=== PATIENT | female | born 1975 | race Caucasian/White ===

== ENCOUNTER 2020-05-16 14:13 | Emergency (ER) | payer MEDICAID, SELFPAY ==
[2020-05-16 14:25] VITALS: BP 120/73; PULSE 89; RESP 18; TEMP 36.6; O2SAT 97; BMI 25.0
--- NOTE | 2020-05-16 14:36 | HMH.EDUTC ---
[facility] [place] Disposition Clinical Impression: Bronchitis Sinusitis Qualifiers: Sinusitis location: unspecified location Chronicity: unspecified Qualified Code(s): J32.9 - Chronic sinusitis, unspecified Disposition: Home, Self-Care Condition on Discharge: Good Instructions: Sinusitis, Sinus Headache, Acute Bronchitis, Azithromycin Additional Instructions: ? Start antibiotic today. Be sure to complete entire prescription even if feeling better ? Monitor temp. Tylenol every 4 hours as needed and / or ibuprofen every 6 hours as needed ( As long as your primary care physician has told you that it ok to take both. For fever/aches/pains ER if no less than 101 despite Tylenol or Motrin ? Humidifier/vaporizer or hot steamy shower ? Inhaler every 4-6 hours as needed like we discussed. If unsure how to use it, ask pharmacist to demonstrate how. Should help open airways and improve cough, wheezing, and shortness of breath ? Mucinex during the day for your cough and cough suppressant only at night. Be sure to drink lots of water. Insurance may not cover a prescriptions for mucinex. Might be cheaper to get 400mg tablets and take 2 tablet in the morning, mid-day and evening with lots of water. Start steroid today. Helps with inflammation therefore, cough and wheezing. Follow directions on the package. Reviewed side effects. Patient reports taking them before. Follow up IMMEDIATELY for new or worsening of symptoms OR no noticeable improvement over the next 48-72 hours. 911 immediately for any life threatening symptoms such as chest pain or difficulty breathing You was tested for today for COVID19 your test result should be back in the next 24-48 hours, you may call to the [facility] tomorrow to see if your test results are back however could take up to 48 hours before results are back [phone] [facility] hours are 9am-9pm You was given a handout with instructions for Self Quarantine and Self isolation for while you wait on test results and what to do if they are positive If you are positive the Health Dept will be contacting you also Prescriptions: predniSONE [Deltasone 10mg tablet] 10 mg PO BID 5 Days #10 tab Transmission Status: Received by [facility] #[id number] Azithromycin [Z-Dennis 250mg Tab] 250 mg PO DIRECTED #6 tab Transmission Status: Received by [facility] #[id number] Referrals: Rosalina Booker PA [Primary Care Provider] - As needed Time of Disposition: 15:02 Medical Decision Making - Óscar Inquiry Pt receiving controlled substance: No Óscar was queried for this patient: No Vital Signs: 05/16/20 14:25 05/16/20 14:42 Temperature 97.8 F 97.8 F Temperature Source Oral Oral Pulse Rate 89 Pulse Rate [Right] 89 Respiratory Rate 18 18 Blood Pressure 120/73 Blood Pressure [Left Arm] 120/73 Blood Pressure Mean [Left Arm] 88 Blood Pressure Source [Left Arm] Automatic Cuff Blood Pressure Position [Left Arm] Sitting 02 Sat by Pulse Oximetry 97 Oxygen Delivery Method Room Air Orders (Tests/Meds): ED MEDICATIONS Discontinued Medications Generic Name Dose Route Start Last Admin Trade Name Freq PRN Reason Stop Dose Admin Albuterol/Ipratropium 3 ml 05/16/20 14:36 05/16/20 14:50 Albuterol/Ipratropium 3 Ml Neb IH 05/16/20 14:37 3 ml ONCE ONE Administration ORDERS Category Date Time Status Covid-19 Nasal PCR Sendout Sang Stat Lab 05/16/20 14:36 Ordered Medical Decision Narrative: Wheezing diminished after neb and patient states that she feels much better [facility] [place] HPI - General Stated complaint: Cough Time Seen by Provider: 05/16/20 14:36 Mode of Arrival: Ambulatory Source of Information: Patient Limitations: No Limitations Description of Symptoms (Recalled from Triage Doc. by RN): Chest congestion, dry cough HEENT Symptoms (Recalled from RN notes): No Resp Symptoms (Recalled from RN notes): Yes Skin Symptoms (Recalled from RN notes): No MS Symptoms (Recalled from RN notes): No Functio
[2020-05-16 14:42] VITALS: BP 120/73; PULSE 89; RESP 18; TEMP 36.6; O2SAT 97
[2020-05-18 13:23] LABS: Covid-19 Nasal PCR Sendout Lex NOT DETECTED
== END 2020-05-16 15:24 | disposition home or self-care (01) ==
LOC: UTC 14:16
PROVIDERS: Emergency Provider Nurse Practitioner; PCP Nurse Practitioner Family
DX: Z20.828 Contact with and (suspected) exposure to other viral communicable diseases (principal); J20.9 Acute bronchitis, unspecified; J32.9 Chronic sinusitis, unspecified; F17.210 Nicotine dependence, cigarettes, uncomplicated; Z88.2 Allergy status to sulfonamides; Z88.5 Allergy status to narcotic agent
CPT/HCPCS: 99201; U0004

== ENCOUNTER 2020-10-23 14:02 | Emergency (ER) | payer MEDICAID, SELFPAY ==
[2020-10-23 14:05] VITALS: BP 144/85; PULSE 88; RESP 17; TEMP 37; O2SAT 95; BMI 25.0
--- NOTE | 2020-10-23 14:35 | HMH.EDUTC ---
[facility] [place] Disposition Clinical Impression: COPD exacerbation Disposition: Home, Self-Care Condition on Discharge: Good Instructions: DI for Chronic Obstructive Pulmonary Disease, Preventing the Spread of Coronavirus Discharge Instructions Additional Instructions: Drink plenty of fluids. Take tylenol or ibuprofen for pain or fever. Take the medications as directed. Follow up with your regular doctor. GO TO THE ER FOR ANY WORSENING SYMPTOMS Prescriptions: Albuterol Sulfate [Albuterol Sulfate Hfa] 2 puffs IH Q6HP PRN 30 Days #1 [email or web address] PRN Reason: Shortness Of Breath Transmission Status: Pending to [email or web address] #[id number] Promethazine/Dextromethorphan [Promethazine-Dm Syrup] 5 ml PO Q6HP PRN #240 syrup PRN Reason: Cough Transmission Status: Pending to [email or web address] #[id number] predniSONE [Deltasone 10mg tablet] 10 mg PO BID 3 Days #6 tab Transmission Status: Pending to [email or web address] #[id number] Azithromycin [Z-Dennis 250mg Tab*] 250 mg PO UD DOSE PK #6 tab Transmission Status: Pending to [email or web address] #[id number] Referrals: Rosalina Booker PA [Primary Care Provider] - Time of Disposition: 14:58 Medical Decision Making - Medical Records Medical records reviewed: No: I reviewed the patient's medical records. - Óscar Inquiry Pt receiving controlled substance: No Vital Signs: 10/23/20 14:05 Temperature 98.6 F Temperature Source Oral Pulse Rate [Left Brachial] 88 Respiratory Rate 17 Blood Pressure [Left Arm] 144/85 H Blood Pressure Mean [Left Arm] 104 Blood Pressure Source [Left Arm] Automatic Cuff Blood Pressure Position [Left Arm] Sitting 02 Sat by Pulse Oximetry 95 Oxygen Delivery Method Room Air - Lab Data Lab results reviewed: Yes: I reviewed the patient's lab results. Orders (Tests/Meds): ORDERS Category Date Time Status Covid-19 Nasal PCR ([facility]) Routine Lab 10/23/20 14:45 Ordered Monoscreen (Rapid) Stat Lab 10/23/20 14:45 Ordered [facility] [place] HPI - General Stated complaint: Cough,difficulty breathing,[place],chest congestion Time Seen by Provider: 10/23/20 14:35 - History of Present Illness Provider Complaint: She states that for the past 3 days she has had a cough and chest congestion. She has also felt achy and had some nausea. Her daughter was diagnosed with mono 1 week ago. This patient denies sore throat. She has not been vaccinated against covid-19. She has had a flu shot this season. She has a history of copd. - Related Data Previous Rx's Medication Instructions Recorded Cefdinir [Omnicef 300mg Capsule] 300 mg PO BID #20 cap 10/23/18 Azithromycin [Z-Dennis 250mg Tab] 250 mg PO DIRECTED #6 tab 05/16/20 predniSONE [Deltasone 10mg tablet] 10 mg PO BID 5 Days #10 tab 05/16/20 Albuterol Sulfate [Albuterol 2 puffs IH Q6HP PRN 30 Days #1 10/23/20 Sulfate Hfa] [email or web address] Azithromycin [Z-Dennis 250mg Tab*] 250 mg PO UD DOSE PK #6 tab 10/23/20 Promethazine/Dextromethorphan 5 ml PO Q6HP PRN #240 syrup 10/23/20 [Promethazine-Dm Syrup] predniSONE [Deltasone 10mg tablet] 10 mg PO BID 3 Days #6 tab 10/23/20 Allergies Allergy/AdvReac Type Severity Reaction Status Date / Time oxycodone [From PERCOCET] Allergy Intermediate I-ITCHING Verified 05/16/20 14:39 sulfamethoxazole Allergy Mild I-RASH Verified 05/16/20 14:39 [From Bactrim] trimethoprim [From Bactrim] Allergy Mild I-RASH Verified 05/16/20 14:39 [facility] History - Hepatitis A Screen Attestation statement:: This patient has been screened for Hepatitis A risk factors. I have reviewed the patient's past medical history: Yes Medical History: Denies:: Cancer, Diabetes Mellitus Type 1, Diabetes Mellitus Type 2, Internal Pacemaker, MRSA Other Surgeries: No: Pacemaker Amputation: No Fractures: No - Social History Smoking Status: Current every day smoker Tobacco Type: cigarettes # Packs/Day (cigarettes): 1 Alcohol Intake: never Occupational Status: employed ROS Obtained: Yes All systems revi
[2020-10-23 15:07] VITALS: BP 144/85; PULSE 88; RESP 17; TEMP 37; O2SAT 95
[2020-10-23 15:27] LABS: Monoscreen (Rapid) Negative (Negative)
--- NOTE | 2020-10-24 10:27 | PC.NURSE ---
Pt called and was given Covid test results.
== END 2020-10-23 15:11 | disposition home or self-care (01) ==
PROVIDERS: Emergency Provider Nurse Practitioner Family; PCP Nurse Practitioner Family
DX: J44.1 Chronic obstructive pulmonary disease with (acute) exacerbation (principal); Z79.899 Other long term (current) drug therapy; Z20.822 Contact with and (suspected) exposure to COVID-19
CPT/HCPCS: 86318; 99202; G0463; U0003

== ENCOUNTER 2020-10-25 13:01 | Observation (INO) | payer MEDICAID, SELFPAY ==
[2020-10-25] VITALS (9 sets, daily range): BP systolic 126–144; BP diastolic 72–95; PULSE 63–74; RESP 18–20; TEMP 36.7–37; O2SAT 92–96; BMI 25.8; BMI 24.2
--- NOTE | 2020-10-25 13:09 | ECG_ITS ---
APPROVED REPORT Exam: Resting ECG HR:61 bpm ECG Measurements Heart Rate 61 AXES IA 156 P 33 QRSd 94 QRS -10 QT 448 T 50 QTc 450 Conclusion Normal sinus rhythm Incomplete right bundle branch block Borderline ECG Electronically signed by : Anshu Lopez, 10/27/2020 11:38:30
--- NOTE | 2020-10-25 13:14 | HMH.EDGENADL ---
ED Disposition Clinical Impression: COPD exacerbation Acute bronchitis Qualifiers: Bronchitis organism: unspecified organism Qualified Code(s): J20.9 - Acute bronchitis, unspecified Disposition: Admitted As Inpatient Condition on Discharge: Fair - Critical Care Critical Care Time: No Attestation: On 10/25/20, the high probability of a clinically significant, sudden or life threatening deterioration of the following system(s) required my full and direct attention, intervention and personal management. The time I documented below is in addition to time spent performing reported procedures but includes the following listed in this critical care notation. Medical Decision Making - Medical Records Medical records reviewed: Yes: I reviewed the patient's medical records. MR Comment: Reviewed [facility] visit 10/23/2020. Diagnosed with COPD exacerbation. Prescribed Zithromax, prednisone, promethazine cough syrup, albuterol metered-dose inhaler. Covid 19 and mono tests negative. Had been exposed to daughter who tested positive for mono. - Óscar Inquiry Pt receiving controlled substance: No Vital Signs: 10/25/20 13:02 10/25/20 14:18 10/25/20 14:23 Temperature 98.6 F Temperature Source Oral Pulse Rate 63 68 Pulse Rate [Left Radial] 68 Respiratory Rate 20 Blood Pressure 126/77 Blood Pressure [Right Arm] 144/95 H Blood Pressure Mean 97 Blood Pressure Mean [Right Arm] 111 02 Sat by Pulse Oximetry 96 96 95 Oxygen Delivery Method Room Air 10/25/20 14:30 10/25/20 15:00 10/25/20 17:10 Temperature 98.4 F Temperature Source Oral Pulse Rate 67 72 72 Pulse Rate [Left Radial] Respiratory Rate 18 Blood Pressure 136/80 139/80 139/80 Blood Pressure [Right Arm] Blood Pressure Mean 87 99 Blood Pressure Mean [Right Arm] 02 Sat by Pulse Oximetry 93 L 92 L Oxygen Delivery Method Room Air - Lab Data Lab Results 10/25/20 13:25: WBC 12.0 H, RBC 3.96 L, Hgb 12.3, Hct 38.0, MCV 96.0, MCH 31.0, MCHC 32.3, RDW 12.5, Plt Count 254, MPV 8.8, Neut % (Auto) 79.7, Lymph % (Auto) 10.2, Cocke % (Auto) 6.4, Eos % (Auto) 3.3, Baso % (Auto) 0.5, Neut # (Auto) 9.6 H, Lymph # (Auto) 1.2, [place] # (Auto) 0.8, Eos # (Auto) 0.4, Baso # (Auto) 0.1 10/25/20 13:25: Sodium 137, Potassium 3.5, Chloride 105, Carbon Dioxide 26, Anion Gap 9.5, BUN 6 L, Creatinine 0.50 L, Estimated Creat Clear 166, Estimated GFR 135, Est GFR ( Amer) 163, Glucose 128 H, Calcium 9.1, Total Bilirubin 0.4, AST 29, ALT 19, Alkaline Phosphatase 74, Total Protein 6.9, Albumin 4.2, Globulin 2.7, Albumin/Globulin Ratio 1.6 10/25/20 13:36: Lactate 1.7 10/25/20 14:50: Chlamy pneumoniae PCR Not detected, Adenovirus (PCR) Not detected, B. pertussis DNA (PCR) Not detected, Coronavirus OC43 (PCR) Not detected, Coronavirus HKU1 (PCR) Not detected, Coronavirus 229E (PCR) Not detected, SARS-CoV-2 (PCR) Not detected, Coronavirus NL63 (PCR) Not detected, Human Metapneumovir PCR Not detected, Influenza A (H1) PCR Not detected, Influ A (H1N1/09) PCR Not detected, Influenza A (H3) PCR Not detected, Influenza Type A (PCR) Not detected, Influenza Type B (PCR) Not detected, M. pneumoniae (PCR) Not detected, Parainfluenza 1 (PCR) Not detected, Parainfluenza 2 (PCR) Not detected, Parainfluenza 3 (PCR) Not detected, Parainfluenza 4 (PCR) Not detected, RSV (PCR) Not detected, Entero/Rhino (PCR) Detected A Result diagrams: 10/25/20 13:25 10/25/20 13:25 Orders (Tests/Meds): ED MEDICATIONS Generic Name Dose Route Start Last Admin Trade Name Freq PRN Reason Stop Dose Admin Acetaminophen 650 mg 10/25/20 16:47 10/25/20 20:12 Acetaminophen 325mg Tab PO 11/24/20 16:46 650 mg Q4HP PRN Administration Fever or Mild Pain Albuterol/Ipratropium 3 ml 10/25/20 20:00 10/25/20 19:44 Ipratropium/Albuterol 3 Ml Neb IH 11/24/20 19:59 3 ml QIDRT ADRIANNA Administration Buspirone HCl 10 mg 10/26/20 09:00 Buspirone Hcl 10 Mg Tablet PO 11/25/20 08:59
--- NOTE | 2020-10-25 13:26 | XR_ITS ---
PROCEDURE: XR CHEST 2V CLINICAL HISTORY: cough, fever, soa COMPARISON: CR CXR CHEST(2 VIEWS-NOT PORTABLE) from 03/13/2015 FINDINGS: The cardiomediastinal silhouette and pulmonary vascularity are within normal limits. The lungs are clear without infiltrates, suspicious nodules, or pleural effusions. No acute bony abnormalities. IMPRESSION: No acute findings. Dictated by: Eleni Wilson 10/25/2020 14:13 Eleni Wilson in OV 10/25/2020 14:13
[2020-10-25 13:50] LABS: Basophils # 0.1 K/mm3 (0-0.2); Basophils % 0.5 % (0.1-2.0); Eosinophils # 0.4 K/mm3 (0.0-0.4); Eosinophils % 3.3 % (0.1-12.0); Hemoglobin 12.3 g/dL (12.2-16.2); Lymphocytes # 1.2 K/mm3 (0.7-4.5); Lymphocytes % 10.2 % (10-50); Mean Corpuscular HGB Conc 32.3 g/dL (31.8-35.4); Mean Platelet Volume 8.8 fl (7.4-10.4); Monocytes # 0.8 K/mm3 (0.1-1.0); Monocytes % 6.4 % (1.7-9.3); Neutrophils # 9.6 K/mm3 (1.8-7.8); Neutrophils % 79.7 % (37.0-80.0); Platelet Count 254 K/mm3 (142-424); Red Blood Count 3.96 M/mm3 (4.20-5.40); Red Cell Distribution Width 12.5 % (11.5-17.5)
[2020-10-25 13:55] LABS: Alanine Aminotransferase 19 U/L (12-78); Albumin Level 4.2 g/dl (3.5-5.0); Albumin/Globulin Ratio 1.6 (1.1-1.8); Alkaline Phosphatase 74 U/L (38-126); Aspartate Amino Transferase 29 U/L (14-36); Bilirubin,Total 0.4 mg/dl (0.2-1.3); Blood Urea Nitrogen 6 mg/dl (7-17); Calcium 9.1 mg/dl (8.4-10.2); Carbon Dioxide 26 mmol/L (22.0-30.0); Chloride 105 mmol/L (98-107); Creatinine Clearance Estimated 166 mL/min (50-200); Estimated Glomerular Filt Rate 135 ml/min (>60); GFR (African American) 163 ML/MIN (>60); Globulin 2.7 g/dL (1.3-3.2); Glucose 128 mg/dl (74-100); Sodium 137 mmol/L (136-145); Total Protein,Serum 6.9 g/dl (6.3-8.2)
[2020-10-25 13:58] LABS: Anion Gap 9.5 mEq/L (5-15); Potassium 3.5 mmoL/L (3.5-5.1)
[2020-10-25 13:59] LABS: Lactic Acid 1.7 mmol/L (0.7-2.1)
[2020-10-25 14:54] LABS: Adenovirus,PCR Not Detected (NotDetected); Bordetella Pertussis Not Detected (NotDetected); Chlamydophila Pneumoniae, PCR Not Detected (NotDetected); Coronavirus 19, PCR Not Detected (NotDetected); Coronavirus 229E Not Detected (NotDetected); Coronavirus NL63 Not Detected (NotDetected); Coronavirus OC43 Not Detected (NotDetected); Coronovirus HKU1,PCR Not Detected (NotDetected); Human Metapneumovirus Not Detected (NotDetected); Influenza A, PCR Not Detected (NotDetected); Influenza AH1, 2009 Not Detected (NotDetected); Influenza AH1, PCR Not Detected (NotDetected); Influenza AH3,PCR Not Detected (NotDetected); Influenza B, PCR Not Detected (NotDetected); Mycoplasma Pneumoniae, PCR Not Detected (NotDetected); Parainfluenza 1, PCR Not Detected (NotDetected); Parainfluenza 2, PCR Not Detected (NotDetected); Parainfluenza 3, PCR Not Detected (NotDetected); Parainfluenza 4, PCR Not Detected (NotDetected); Respiratory Syncytial Virus Not Detected (NotDetected)
--- NOTE | 2020-10-25 15:42 | P.CONPHA_ITS ---
[facility] Pharmacy VTE Monitoring - Patient Demographics Admission date: 10/25/20 Report Date: 10/25/20 Time: 15:42 Allergies/Adverse Reactions: Patient Allergies oxycodone [From PERCOCET] Allergy (Intermediate, Verified 05/16/20 14:39) I-ITCHING sulfamethoxazole [From Bactrim] Allergy (Mild, Verified 05/16/20 14:39) I-RASH trimethoprim [From Bactrim] Allergy (Mild, Verified 05/16/20 14:39) I-RASH Height: 1.68 m Weight: 72.575 kg Patient Problems: Current Active Problems COPD exacerbation (Acute) Acute bronchitis (Acute) - VTE Risk Labs: VTE Related Lab Results Hgb 12.3 g/dL (12.2-16.2) 10/25/20 13:25 Hct 38.0 % (37.0-47.0) 10/25/20 13:25 Plt Count 254 K/mm3 (142-424) 10/25/20 13:25 BUN 6 mg/dl (7-17) L 10/25/20 13:25 Creatinine 0.50 mg/dl (0.52-1.04) L 10/25/20 13:25 Estimated Creat Clear 166 mL/min (50-200) 10/25/20 13:25 Clinical Trial Participant: No - Prophylaxis VTE Prophylaxis Ordered?: Yes Types of VTE Prophylaxis: TEDS Knee High
--- NOTE | 2020-10-25 15:48 | HMH.PHAINT ---
HOME MEDICATION LIST VERIFIED USING LIST FROM OUTPATIENT PHARMACY
[2020-10-25 16:13] LABS: Rhinovirus/Enterovirus Detected (NotDetected)
--- NOTE | 2020-10-25 17:02 | PC.NURSE ---
Verified with ED that pt was to receive another 80 mg of solu medrol on aug as ordered, spoke with Shira.
--- NOTE | 2020-10-25 17:12 | PC.NURSE ---
Pt arrived tp the floor at this time.
--- NOTE | 2020-10-25 20:12 | HMH.HP ---
*Admission Date: 10/25/20 *Chief complaint: dyspnea *History of present illness: A 45-year-old white female who is admitted with complaints of dyspnea, cough, left posterior lateral chest wall pain, wheezing and a history of fever to 101.3. Patient is followed by Rosalina Booker nurse practitioner in [facility], associated with [facility]. She relays that she was given a diagnosis of COPD approximately 3 months ago. Does not have a history of asthma formally diagnosed, but is demonstrating significant asthma type symptoms including wheezing, cough, copious rhinorrhea. Patient was exposed to mono via her daughter. He was seen in the [facility] on 10/23/2020. Nasal swab today showed presence of rhinovirus. Her chest x-ray is clear. Lowest saturation seen on room air is 92%. She is admitted for further evaluation of her dyspnea and ultimately resolution of symptoms. She is a long-term smoker, strongly advised to curtail. [facility] History Medical History: Denies:: Cancer, Diabetes Mellitus Type 1, Diabetes Mellitus Type 2, Internal Pacemaker, MRSA *Have you ever received a pneumonia vaccine?: No *Have you received a flu vaccine this season?: Yes Other Surgeries: Yes: Hysterectomy-Total. No: Pacemaker Amputation: No Fractures: No - *Social History Smoking Status: Current every day smoker Tobacco Type: cigarettes # Packs/Day (cigarettes): 1 Alcohol Intake: never *Occupational Status:: unemployed *Travel in the last 8 weeks: None Family Hx:: Unable to obtain Review of Systems - Constitutional Reports lack of energy - Eyes Reports discharge, Reports itchy eyes - ENT Reports headache(s), Reports nasal congestion, Reports nasal discharge - *Cardiovascular Reports chest pain, Reports shortness of breath, Denies leg swelling - *Respiratory Reports chest congestion, Reports cough, Reports shortness of breath, Reports pain with cough - *Gastrointestinal Denies abdominal pain, Denies vomiting blood, Denies black, tarry stools - *Genitourinary Reports side pain - *Musculoskeletal Reports muscle weakness - Integumentary/Breasts Denies yellowing of the skin - *Neurologic Denies localized weakness - Psychiatric Denies behavioral changes - Endocrine Denies rapid, pounding, or irregular heartbeat - Hematologic/Lymphatic Denies easy bleeding, Denies easy bruising - Allergic/Immunologic Reports itchy eyes, Reports seasonal runny nose, Reports wheezing Meds Home Medications Medication Instructions Recorded Confirmed Type Albuterol Sulfate [Albuterol 2 puffs IH Q6HP PRN 30 Days #1 10/23/20 10/25/20 Rx Sulfate Hfa] hfa.aer.ad Azithromycin [Z-Dennis 250mg Tab] 250 mg PO DIRECTED 10/25/20 10/25/20 History Buprenorphine HCl/Naloxone HCl 8 mg PO BID 10/25/20 10/25/20 History [Suboxone 8mg/2mg ODT] Buspirone HCl [Buspar 10mg 10 mg PO TID 10/25/20 10/25/20 History tablet] Ergocalciferol (Vitamin D2) 50,000 units PO WEEKLY 10/25/20 10/25/20 History [Drisdol 50,000 units (1.25mg) capsule] Ipratropium/Albuterol Sulfate 3 ml IH QID #30 neb 10/25/20 Rx [Duoneb 3mL neb] Losartan Potassium [Cozaar 100mg 100 mg PO DAILY 10/25/20 10/25/20 History Tablets] Metoprolol Tartrate 50 mg PO DAILY 10/25/20 10/25/20 History [place]-3 Fatty Acids/Fish Oil [Fish 2,000 mg PO BID 10/25/20 10/25/20 History Oil 1,000 mg Capsule] Pravastatin Sodium [Pravachol] 80 mg PO HS 10/25/20 10/25/20 History Pregabalin 150 mg PO TID 10/25/20 10/25/20 History Ropinirole HCl 0.5 mg PO HS 10/25/20 10/25/20 History Trazodone HCl 200 mg PO HS 10/25/20 10/25/20 History buPROPion HCL [Bupropion Xl] 150 mg PO DAILY 10/25/20 10/25/20 History estradioL [Estradiol] 2 mg PO DAILY 10/25/20 10/25/20 History methocarbamoL [Methocarbamol 500mg 500 mg PO Q8HP PRN 10/25/20 10/25/20 History Tablet] Allergies Allergy/AdvReac Type Severity Reaction Status Date / Time oxycodone [From PERCOCET] Allergy Inter
--- NOTE | 2020-10-26 03:07 | PC.NURSE ---
Patient admitted for COPD exacerbation. Expiratory wheezes audible in Bilateral Anterior and Posterior lungs. Patient in Droplet precautions for Rhinovirus. Patient receiving Steriod IV and also Duo Nebs for relief of symptoms. Also noted patient. Have not been able to obtain Sputum sample as of late. Will continue to monitor for any acute changes.
[2020-10-26 04:06] VITALS: BP 139/81; PULSE 65; RESP 16; TEMP 36.8; O2SAT 91
[2020-10-26 06:35] VITALS: PULSE 76; O2SAT 92
[2020-10-26 06:48] VITALS: BMI 24.0
[2020-10-26 08:00] VITALS: BP 121/77; PULSE 71; RESP 16; TEMP 36.7; O2SAT 92
--- NOTE | 2020-10-26 12:33 | HMH.DCSUM ---
General - General Admission date:: 10/25/20 Discharge date: 10/26/20 HPI HPI: A 45-year-old white female who is admitted with complaints of dyspnea, cough, left posterior lateral chest wall pain, wheezing and a history of fever to 101.3. Patient is followed by Rosalina Booker nurse practitioner in [facility], associated with [facility]. She relays that she was given a diagnosis of COPD approximately 3 months ago. Does not have a history of asthma formally diagnosed, but is demonstrating significant asthma type symptoms including wheezing, cough, copious rhinorrhea. Patient was exposed to mono via her daughter. He was seen in the [facility] on 10/23/2020. Nasal swab today showed presence of rhinovirus. Her chest x-ray is clear. Lowest saturation seen on room air is 92%. She is admitted for further evaluation of her dyspnea and ultimately resolution of symptoms. She is a long-term smoker, strongly advised to curtail. Hospital Course Hospital Course: Laboratory Tests 10/25/20 10/25/20 10/25/20 13:25 13:25 13:36 WBC 12.0 H RBC 3.96 L Hgb 12.3 Hct 38.0 MCV 96.0 MCH 31.0 MCHC 32.3 RDW 12.5 Plt Count 254 MPV 8.8 Neut % (Auto) 79.7 Lymph % (Auto) 10.2 Haines % (Auto) 6.4 Eos % (Auto) 3.3 Baso % (Auto) 0.5 Neut # (Auto) 9.6 H Lymph # (Auto) 1.2 Haines # (Auto) 0.8 Eos # (Auto) 0.4 Baso # (Auto) 0.1 Sodium 137 Potassium 3.5 Chloride 105 Carbon Dioxide 26 Anion Gap 9.5 BUN 6 L Creatinine 0.50 L Estimated Creat Clear 166 Estimated GFR 135 Est GFR ( Amer) 163 Glucose 128 H Lactate 1.7 Calcium 9.1 Total Bilirubin 0.4 AST 29 ALT 19 Alkaline Phosphatase 74 Total Protein 6.9 Albumin 4.2 Globulin 2.7 Albumin/Globulin Ratio 1.6 Chlamy pneumoniae PCR Adenovirus (PCR) B. pertussis DNA (PCR) Coronavirus OC43 (PCR) Coronavirus HKU1 (PCR) Coronavirus 229E (PCR) SARS-CoV-2 (PCR) Coronavirus NL63 (PCR) Human Metapneumovir PCR Influenza A (H1) PCR Influ A (H1N1/09) PCR Influenza A (H3) PCR Influenza Type A (PCR) Influenza Type B (PCR) M. pneumoniae (PCR) Parainfluenza 1 (PCR) Parainfluenza 2 (PCR) Parainfluenza 3 (PCR) Parainfluenza 4 (PCR) RSV (PCR) Entero/Rhino (PCR) 10/25/20 14:50 WBC RBC Hgb Hct MCV MCH MCHC RDW Plt Count MPV Neut % (Auto) Lymph % (Auto) Haines % (Auto) Eos % (Auto) Baso % (Auto) Neut # (Auto) Lymph # (Auto) Haines # (Auto) Eos # (Auto) Baso # (Auto) Sodium Potassium Chloride Carbon Dioxide Anion Gap BUN Creatinine Estimated Creat Clear Estimated GFR Est GFR ( Amer) Glucose Lactate Calcium Total Bilirubin AST ALT Alkaline Phosphatase Total Protein Albumin Globulin Albumin/Globulin Ratio Chlamy pneumoniae PCR Not detected Adenovirus (PCR) Not detected B. pertussis DNA (PCR) Not detected Coronavirus OC43 (PCR) Not detected Coronavirus HKU1 (PCR) Not detected Coronavirus 229E (PCR) Not detected SARS-CoV-2 (PCR) Not detected Coronavirus NL63 (PCR) Not detected Human Metapneumovir PCR Not detected Influenza A (H1) PCR Not detected Influ A (H1N1/) PCR Not detected Influenza A (H3) PCR Not detected Influenza Type A (PCR) Not detected Influenza Type B (PCR) Not detected M. pneumoniae (PCR) Not detected Parainfluenza 1 (PCR) Not detected Parainfluenza 2 (PCR) Not detected Parainfluenza 3 (PCR) Not detected Parainfluenza 4 (PCR) Not detected RSV (PCR) Not detected Entero/Rhino (PCR) Detected A chest xray:FINDINGS: The cardiomediastinal silhouette and pulmonary vascularity are within normal limits. The lungs are clear without infiltrates, suspicious nodules, or pleural effusions. No acute bony abnormalities. IMPRESSION: no acute findings will dc home on zithromax,stero
[2020-10-26 13:50] VITALS: PULSE 74; PULSE 75
== END 2020-10-26 14:40 | disposition home or self-care (01) ==
LOC: ER 14:45 → 2ND 15:33
PROVIDERS: Admitting Provider Family Medicine; Emergency Provider Emergency Medicine; PCP Nurse Practitioner Family; Visit Provider Emergency Medicine
DX: J44.1 Chronic obstructive pulmonary disease with (acute) exacerbation (principal); B34.8 Other viral infections of unspecified site; Z88.5 Allergy status to narcotic agent; Z88.2 Allergy status to sulfonamides; J30.9 Allergic rhinitis, unspecified; F17.210 Nicotine dependence, cigarettes, uncomplicated; Z71.6 Tobacco abuse counseling
CPT/HCPCS: 71046; 80053; 83605; 85025; 87040; 87581; 87633; 87798; 93005; 94640; 96365; 96367; 96375; 99284; G0378; J0456

== ENCOUNTER 2021-12-09 19:03 | Emergency (ER) | payer MEDICAID, SELFPAY ==
[2021-12-09 19:25] VITALS: BP 164/86; PULSE 66; RESP 18; TEMP 37.1; O2SAT 96; BMI 25.0
[2021-12-09 19:43] LABS: Strep Scrn Group A (Rapid) Negative (Negative)
--- NOTE | 2021-12-09 19:46 | HMH.EDUTC ---
[facility] [place] Clinical Impression: Bronchitis Pharyngitis Qualifiers: Pharyngitis/tonsillitis etiology: unspecified etiology Qualified Code(s): J02.9 - Acute pharyngitis, unspecified Disposition: Home, Self-Care Condition on Discharge: Good Instructions: DI for Pharyngitis/Tonsillopharyngitis -- Adult, DI for Acute Bronchitis, DI for COVID-19 (Suspected or Confirmed ), Preventing the Spread of Coronavirus Discharge Instructions Additional Instructions: Drink plenty of fluids. Take tylenol or ibuprofen for pain or fever. Take the medications as directed. Follow up with your regular doctor. GO TO THE ER FOR ANY WORSENING SYMPTOMS Quarantine until you know the results of your covid-19 test. Notify your school or workplace of your results and follow their instructions regarding return to work/school. Prescriptions: Ondansetron [Zofran 4mg ODT] 4 mg PO Q8HP PRN #20 tab PRN Reason: Nausea Transmission Status: Pending to [facility] #[id number] Benzonatate [Benzonatate 100mg cap] 100 mg PO TIDP PRN #30 cap PRN Reason: Cough Transmission Status: Pending to [facility] #[id number] methylPREDNISolone [Medrol] 4 mg PO DIRECTED 6 Days #21 packet Transmission Status: Pending to [facility] #[id number] guaiFENesin [Mucinex 600mg tablet] 1 - 2 tab PO BIDP PRN #30 tab PRN Reason: Congestion Transmission Status: Pending to [facility] #[id number] Azithromycin [Z-Dennis 250mg Tab*] 250 mg PO UD DOSE PK #6 tab Transmission Status: Pending to [facility] #[id number] Referrals: Polina Riojas APRN [Primary Care Provider] - Time of Disposition: 19:55 Medical Decision Making - Medical Records Medical records reviewed: No: I reviewed the patient's medical records. - Óscar Inquiry Pt receiving controlled substance: No Vital Signs: 12/09/21 19:25 Temperature 98.7 F Temperature Source Oral Pulse Rate [Left] 66 Respiratory Rate 18 Blood Pressure [Right Arm] 164/86 H Blood Pressure Mean [Right Arm] 112 02 Sat by Pulse Oximetry 96 - Lab Data Lab results reviewed: Yes: I reviewed the patient's lab results. Lab Results 12/09/21 19:18: Group A Strep Rapid Negative Orders (Tests/Meds): ORDERS Category Date Time Status Covid-19 Nasal PCR ([facility]) Routine Lab 12/09/21 19:18 Received Strep Screen Confirmation Stat Micro 12/09/21 19:18 Received [facility] [place] - General Stated complaint: sore throat Time Seen by Provider: 12/09/21 19:47 Description of Symptoms (Recalled from Triage Doc. by RN): patient comes in with complaints of sore throat, headache, body aches, ear pain. symptoms began thursday HEENT Symptoms (Recalled from RN notes): Yes Resp Symptoms (Recalled from RN notes): Yes Skin Symptoms (Recalled from RN notes): No MS Symptoms (Recalled from RN notes): No Functional Status (Recalled from RN notes): wnl - History of Present Illness Provider Complaint: She states that for the past 2 days she has had worsening chest congestion, sinus congestion and sore throat. She has had low grade fever and chilling at times and body aches. She has been vaccinated against covid-19. She denies shortness of breath and chest pain. - Related Data Home Medications Medication Instructions Recorded Confirmed Buprenorphine HCl/Naloxone HCl 2 each PO DAILY 10/25/20 10/26/20 [Suboxone 8mg/2mg ODT] Buspirone HCl [Buspar 10mg 10 mg PO TID 10/25/20 10/25/20 tablet] Ergocalciferol (Vitamin D2) 50,000 units PO WEEKLY 10/25/20 10/25/20 [Drisdol 50,000 units (1.25mg) capsule] Losartan Potassium [Cozaar 100mg 100 mg PO DAILY 10/25/20 10/25/20 Tablets] Metoprolol Tartrate 50 mg PO DAILY 10/25/20 10/25/20 [place]-3 Fatty Acids/Fish Oil [Fish 2,000 mg PO BID 10/25/20 10/25/20 Oil 1,000 mg Capsule] Pravastatin Sodium [Pravachol] 80 mg PO HS 10/25/20 10/25/20 Pregabalin 150 mg PO TID 10/25/20 10/25/20 Ropinirole HCl 0.5 mg PO HS 10/25/20 10/25/20 Trazodone HCl
[2021-12-09 19:57] VITALS: BP 164/86; PULSE 66; RESP 18; TEMP 37.1
== END 2021-12-09 19:59 | disposition home or self-care (01) ==
PROVIDERS: Emergency Provider Nurse Practitioner Family; PCP Nurse Practitioner Family
DX: J40 Bronchitis, not specified as acute or chronic (principal)
CPT/HCPCS: 87430; 99212; C9803; G0463; U0003; U0005

== ENCOUNTER 2022-02-28 12:34 | Emergency (ER) | payer MEDICAID, SELFPAY ==
[2022-02-28 14:02] VITALS: BP 119/95; PULSE 65; RESP 19; TEMP 36.6; O2SAT 99; BMI 24.0
--- NOTE | 2022-02-28 14:03 | EXP.UTC ---
Discharge Plan Disposition Patient Disposition: Home, Self-Care Prescriptions Prescriptions: No Action fluticasone propion-salmeterol [Advair Diskus] 100-50 mcg/dose blister with device See Rx Instructions .ROUTE .COMPLEX Qty: 60 0RF Dose Instruction: INHALE 1 PUFF BY MOUTH TWICE DAILY Rx Instructions: INHALE 1 PUFF BY MOUTH TWICE DAILY azithromycin 250 MG tablet 250 mg PO UD DOSE PK Qty: 6 0RF Rx Instructions: Take two (2) tablets today, then one (1) tablet days #2 thru #5 benzonatate 100 MG capsule 100 mg PO TIDP PRN (Reason: Cough) Qty: 30 0RF methylprednisolone 4 MG tablets,dose pack 4 mg PO DIRECTED 6 Days Qty: 21 0RF guaifenesin 600 MG tablet extended release 12hr 1 - 2 tab PO BIDP PRN (Reason: Congestion) Qty: 30 0RF ondansetron 4 MG tablet,disintegrating 4 mg PO Q8HP PRN (Reason: Nausea) Qty: 20 0RF albuterol sulfate 8.5 GM HFA aerosol inhaler 2 puffs IH Q6HP PRN (Reason: Shortness Of Breath) 30 Days Qty: 1 5RF ipratropium-albuterol 3 ML solution for nebulization 3 ml IH QID Qty: 30 0RF methocarbamol 500 MG tablet 500 mg PO Q8HP PRN (Reason: muscle tightness) trazodone 100 MG tablet 200 mg PO HS Label Comments: PATIENT REPORTS SHE TAKES TWO CAPSULES AT BEDTIME buspirone 10 MG tablet 10 mg PO TID losartan 100 MG tablet 100 mg PO DAILY pregabalin 150 MG capsule 150 mg PO TID omega-3 fatty acids-fish oil 1 EACH capsule 2,000 mg PO BID ropinirole 0.5 MG tablet 0.5 mg PO HS pravastatin 80 MG tablet 80 mg PO HS metoprolol tartrate 50 MG tablet 50 mg PO DAILY ergocalciferol (vitamin D2) 50,000 UNIT capsule 50,000 units PO WEEKLY bupropion HCl 150 MG tablet extended release 24 hr 150 mg PO DAILY estradiol 2 MG tablet 2 mg PO DAILY buprenorphine-naloxone 1 EACH tablet, sublingual 2 each PO DAILY prednisone 20 MG tablet 20 mg PO BID Qty: 10 0RF azithromycin 250 MG tablet 250 mg PO DIRECTED Qty: 4 0RF Rx Instructions: one tab daily- first dose in [place] [facility] Referrals Follow up/Referrals: Polina Riojas APRN [Primary Care Provider] - See instructions Alexandra Moy MD [Staff Physician] - See instructions (radial nerve palsy) Activity Restrictions/Add. Instructions Additional Instructions/Restrictions: Please try to use your splint as much as possible. We will also give you follow-up with neurology to ensure that your symptoms continue to resolve. Please use the Silvadene and keep the wound dressed. Clinical Impressions Clinical Impression: Numbness and tingling of right upper extremity, Thursday night paralysis of right upper extremity, Burn Instructions Patient Instructions: How to Take Care of a Burn, DI for Le Discharge ED Provider: Chance Guerrero [facility] [place] HPI General Chief complaint: Extremity Problem,Nontraumatic Stated complaint: RT hand pain/weakness; blisters on behind Time Seen by Provider: 02/28/22 14:04 Description of Symptoms (Recalled from Triage Doc. 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
--- NOTE | 2022-02-28 14:09 | PC.NURSE ---
pt to ED from [facility]
[2022-02-28 14:13] VITALS: BP 111/96; PULSE 61; O2SAT 99
[2022-02-28 14:25] VITALS: BP 105/59; PULSE 63; RESP 18; TEMP 36.8; O2SAT 98; BMI 23.9
[2022-02-28 14:31] VITALS: BP 105/59; PULSE 59; O2SAT 99
--- NOTE | 2022-02-28 14:31 | HMH.EDGENADL ---
Discharge Plan Disposition Patient Disposition: Home, Self-Care Prescriptions Prescriptions: No Action fluticasone propion-salmeterol [Advair Diskus] 100-50 mcg/dose blister with device See Rx Instructions .ROUTE .COMPLEX Qty: 60 0RF Dose Instruction: INHALE 1 PUFF BY MOUTH TWICE DAILY Rx Instructions: INHALE 1 PUFF BY MOUTH TWICE DAILY azithromycin 250 MG tablet 250 mg PO UD DOSE PK Qty: 6 0RF Rx Instructions: Take two (2) tablets today, then one (1) tablet days #2 thru #5 benzonatate 100 MG capsule 100 mg PO TIDP PRN (Reason: Cough) Qty: 30 0RF methylprednisolone 4 MG tablets,dose pack 4 mg PO DIRECTED 6 Days Qty: 21 0RF guaifenesin 600 MG tablet extended release 12hr 1 - 2 tab PO BIDP PRN (Reason: Congestion) Qty: 30 0RF ondansetron 4 MG tablet,disintegrating 4 mg PO Q8HP PRN (Reason: Nausea) Qty: 20 0RF albuterol sulfate 8.5 GM HFA aerosol inhaler 2 puffs IH Q6HP PRN (Reason: Shortness Of Breath) 30 Days Qty: 1 5RF ipratropium-albuterol 3 ML solution for nebulization 3 ml IH QID Qty: 30 0RF methocarbamol 500 MG tablet 500 mg PO Q8HP PRN (Reason: muscle tightness) trazodone 100 MG tablet 200 mg PO HS Label Comments: PATIENT REPORTS SHE TAKES TWO CAPSULES AT BEDTIME buspirone 10 MG tablet 10 mg PO TID losartan 100 MG tablet 100 mg PO DAILY pregabalin 150 MG capsule 150 mg PO TID omega-3 fatty acids-fish oil 1 EACH capsule 2,000 mg PO BID ropinirole 0.5 MG tablet 0.5 mg PO HS pravastatin 80 MG tablet 80 mg PO HS metoprolol tartrate 50 MG tablet 50 mg PO DAILY ergocalciferol (vitamin D2) 50,000 UNIT capsule 50,000 units PO WEEKLY bupropion HCl 150 MG tablet extended release 24 hr 150 mg PO DAILY estradiol 2 MG tablet 2 mg PO DAILY buprenorphine-naloxone 1 EACH tablet, sublingual 2 each PO DAILY prednisone 20 MG tablet 20 mg PO BID Qty: 10 0RF azithromycin 250 MG tablet 250 mg PO DIRECTED Qty: 4 0RF Rx Instructions: one tab daily- first dose in [facility] Referrals Follow up/Referrals: Polina Riojas APRN [Primary Care Provider] - See instructions Alexandra Moy MD [Staff Physician] - See instructions (radial nerve palsy) Activity Restrictions/Add. Instructions Additional Instructions/Restrictions: Please try to use your splint as much as possible. We will also give you follow-up with neurology to ensure that your symptoms continue to resolve. Please use the Silvadene and keep the wound dressed. Clinical Impressions Clinical Impression: Numbness and tingling of right upper extremity, Thursday night paralysis of right upper extremity, Burn Discharge ED Provider: Chance Guerrero General Adult HPI General Stated complaint: RT hand pain/weakness; blisters on behind Time Seen by Provider: 02/28/22 14:04 Description of Symptoms (Recalled from ER Triage Doc. 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 She says that she was helping her brother apply some aubrey last weekend when she woke up and was unable to use her right arm. She says that she was not able to hold her wrist up at all and was having difficulty holding things. She says that she got a splint and that since then she has been getting some
[2022-02-28 15:02] VITALS: BP 105/59; PULSE 63; RESP 18; TEMP 36.8; O2SAT 98
== END 2022-02-28 15:02 | disposition home or self-care (01) ==
LOC: UTC 12:38 → ER 14:08
PROVIDERS: Emergency Provider Student in an Organized Health Care Education/Training Program; PCP Nurse Practitioner Family
DX: G56.31 Lesion of radial nerve, right upper limb (principal); T21.05XA Burn of unspecified degree of buttock, initial encounter
CPT/HCPCS: 99282

== ENCOUNTER 2022-09-30 15:52 | Emergency (ER) | payer MEDICAID, SELFPAY ==
[2022-09-30 15:53] VITALS: BP 136/91; PULSE 72; RESP 20; TEMP 36.9; O2SAT 99; BMI 25.0
--- NOTE | 2022-09-30 16:03 | EXP.UTC ---
Discharge Plan Disposition Patient Disposition: Home, Self-Care Condition: Good Prescriptions Prescriptions: New mupirocin 2 % ointment 1 applic topical TID 7 Days Qty: 15 0RF No Action meloxicam 15 mg tablet 15 mg PO DAILY ropinirole 1 mg tablet 1 mg PO HS buprenorphine-naloxone [Suboxone] 2-0.5 mg film 1 film buccal DAILY Rx Instructions: place 1 strip/tab under (each) side of tongue bupropion HCl 150 mg tablet extended release 24 hr 150 mg PO DAILY Qty: 30 3RF pregabalin 150 mg capsule 150 mg PO TID Qty: 90 2RF albuterol sulfate 90 mcg/actuation HFA aerosol inhaler 2 puff inhalation Q6H PRN (Reason: shortness of breath or wheezing) Qty: 8.5 3RF fluticasone propionate [Flonase Allergy Relief] 50 mcg/actuation spray,suspension 1 spray intranasal DAILY Qty: 16 3RF Rx Instructions: administer into each nostril estradiol 2 mg tablet 2 mg PO DAILY 90 Days Qty: 90 1RF methocarbamol 500 mg tablet See Rx Instructions .ROUTE .COMPLEX Rx Instructions: TAKE 1 TABLET BY MOUTH FOUR TIMES DAILY NEEDED FOR MUSCLE PAIN trazodone 100 mg tablet See Rx Instructions .ROUTE .COMPLEX Rx Instructions: TAKE 2 TABLETS BY MOUTH EVERY DAY AT BEDTIME buspirone 10 mg tablet 10 mg PO TID losartan 100 MG tablet 100 mg PO DAILY pravastatin 80 MG tablet 80 mg PO HS metoprolol tartrate 50 MG tablet 50 mg PO DAILY ergocalciferol (vitamin D2) 50,000 UNIT capsule 50,000 units PO WEEKLY Referrals Follow up/Referrals: Valente Negron MD [Primary Care Provider] - See instructions Activity Restrictions/Add. Instructions Additional Instructions/Restrictions: Keep the affected area clean and dry. Follow up with your regular doctor. Apply the topical antibiotics as directed. Apply warm wet compresses to the affected area three or four times per day. GO TO THE ER FOR ANY WORSENING SYMPTOMS Clinical Impressions Clinical Impression: Tick bite Instructions Patient Instructions: How to Remove a Tick Discharge ED Provider[place] Jad Dorsey [facility] [place] General Stated complaint: poss tick bite groin area Time Seen by Provider: 09/30/22 16:03 History of Present Illness Provider Complaint: She states that she thinks she has a tick embedded on her left groin area. She states that she noticed it and came here immediately. Related Data Home Medications Medication Instructions Recorded Confirmed ergocalciferol (vitamin D2) 1,250 50,000 units PO WEEKLY Supplement 10/25/20 08/06/22 mcg (50,000 unit) capsule losartan 100 mg tablet 100 mg PO DAILY blood pressure 10/25/20 09/30/22 metoprolol tartrate 50 mg tablet 50 mg PO DAILY BLOOD PRESSURE 10/25/20 09/30/22 pravastatin 80 mg tablet 80 mg PO HS Cholesterol 10/25/20 09/30/22 buprenorphine 2 mg-naloxone 0.5 mg 1 film buccal DAILY 03/07/22 03/07/22 sublingual film (Suboxone) meloxicam 15 mg tablet 15 mg PO DAILY . 03/07/22 09/30/22 ropinirole 1 mg tablet 1 mg PO HS . 03/07/22 09/30/22 buspirone 10 mg tablet 10 mg PO TID Depression 09/30/22 09/30/22 methocarbamol 500 mg tablet See Rx Instructions .Route 09/30/22 09/30/22 .COMPLEX / trazodone 100 mg tablet See Rx Instructions .Route 09/30/22 09/30/22 .COMPLEX . Previous Rx's Medication Instructions Recorded estradiol 2 mg tablet 2 mg PO DAILY hormones 90 days 03/18/22 #90 tabs albuterol sulfate 90 mcg/actuation 2 puff inhalation Q6H PRN 08/06/22 aerosol inhaler shortness of breath or wheezing #8.5 grams bupropion HCl 150 mg 24 hr tablet, 150 mg PO DAILY depression #30 tabs 08/06/22 extended release fluticasone propionate 50 1 spray intranasal DAILY #16 grams 08/06/22 mcg/actuation nasal spray,suspension (Flonase Allergy Relief) pregabalin 150 mg capsule 150 mg PO TID fibromyalgia #90 caps 08/06/22 mupirocin 2 % topical ointment 1 applic topical TID 7 days #15 09/30/22 grams
[2022-09-30 16:44] VITALS: BP 136/91; PULSE 72; RESP 20; TEMP 36.9; O2SAT 99
== END 2022-09-30 16:44 | disposition home or self-care (01) ==
PROVIDERS: Emergency Provider Nurse Practitioner Family; PCP Family Medicine
DX: S70.362A Insect bite (nonvenomous), left thigh, initial encounter (principal); W57.XXXA Bitten or stung by nonvenomous insect and other nonvenomous arthropods, initial encounter; J44.9 Chronic obstructive pulmonary disease, unspecified; F17.210 Nicotine dependence, cigarettes, uncomplicated; I10 Essential (primary) hypertension; E78.5 Hyperlipidemia, unspecified
CPT/HCPCS: 99212; 99214; G0463

== ENCOUNTER 2023-01-16 16:37 | Emergency (ER) | payer MEDICAID, SELFPAY ==
[2023-01-16 16:45] VITALS: BP 113/70; PULSE 64; RESP 20; TEMP 36.8; O2SAT 99; BMI 25.7
--- NOTE | 2023-01-16 17:01 | EXP.UTC ---
Discharge Plan Disposition Patient Disposition: Home, Self-Care Condition: Good Prescriptions Prescriptions: New amoxicillin 875 mg tablet 875 mg PO BID Qty: 20 0RF No Action meloxicam 15 mg tablet 15 mg PO DAILY ropinirole 1 mg tablet 1 mg PO HS buprenorphine-naloxone [Suboxone] 2-0.5 mg film 1 film buccal DAILY Rx Instructions: place 1 strip/tab under (each) side of tongue albuterol sulfate 90 mcg/actuation HFA aerosol inhaler 2 puff inhalation Q6H PRN (Reason: shortness of breath or wheezing) Qty: 8.5 3RF fluticasone propionate [Flonase Allergy Relief] 50 mcg/actuation spray,suspension 1 spray intranasal DAILY Qty: 16 3RF Rx Instructions: administer into each nostril pregabalin 150 mg capsule 150 mg PO TID Qty: 90 2RF methocarbamol 500 mg tablet See Rx Instructions .ROUTE .COMPLEX Qty: 120 0RF Dose Instruction: TAKE 1 TABLET BY MOUTH FOUR TIMES DAILY NEEDED FOR MUSCLE PAIN Rx Instructions: TAKE 1 TABLET BY MOUTH FOUR TIMES DAILY NEEDED FOR MUSCLE PAIN estradiol 2 mg tablet 2 mg PO DAILY 90 Days Qty: 90 1RF pravastatin 80 mg tablet 80 mg PO HS 90 Days Qty: 90 1RF trazodone 100 mg tablet See Rx Instructions .ROUTE .COMPLEX Qty: 60 3RF Dose Instruction: TAKE 2 TABLETS BY MOUTH EVERY DAY AT BEDTIME Rx Instructions: TAKE 2 TABLETS BY MOUTH EVERY DAY AT BEDTIME bupropion HCl 150 mg tablet extended release 24 hr See Rx Instructions .ROUTE .COMPLEX Qty: 30 0RF Dose Instruction: TAKE 1 TABLET BY MOUTH DAILY FOR DEPRESSION Rx Instructions: TAKE 1 TABLET BY MOUTH DAILY FOR DEPRESSION mupirocin 2 % ointment 1 applic topical TID 7 Days Qty: 15 0RF buspirone 10 mg tablet 10 mg PO TID losartan 100 MG tablet 100 mg PO DAILY metoprolol tartrate 50 MG tablet 50 mg PO DAILY ergocalciferol (vitamin D2) 50,000 UNIT capsule 50,000 units PO WEEKLY Referrals Follow up/Referrals: Valente Negron MD [Primary Care Provider] - See instructions Activity Restrictions/Add. Instructions Additional Instructions/Restrictions: *Monitor Temp, Over the counter Motrin or Tylenol as directed/as needed Tylenol every 4 hours and Motrin every 6 hours (as long as your family doctor has told you that you can take it) for fever or pain. and straight to ER if unable to lower temp less than 101.0 after medication given *Warm salt water gargles may help to soothe the throat *Throat Lozenges? *Warm fluids like tea with honey may help to soothe the throat? *Sleep elevated *Humidifier/Vaporizer *Flonase 2 sprays in each nostril daily but be aware that it may take 2-3 days before you notice improvement Take medication as prescribed Your throat swab was sent for culture. Those results are typically sent to your primary care. Be sure to follow up in 2-3 days with your family doctor/primary care physician if no improvement so they can review those result and treat if necessary. If you don?t have a primary care doctor, I recommend you get one but in the mean time, you will have to return to a walk in clinic Follow up IMMEDIATELY for new or worsening symptoms or no Noticeable improvement over the next 48-72 hours. 911 for difficulty breathing or swallowing You were tested for today for Upper Respiratory Panel with COVID19 your test result should be back in the next 24-48 hours, you may check your results on the [facility] Clinical Impressions Clinical Impression: Otitis media Qualifiers: Otitis media type: unspecified Laterality: right Qualified Code(s): H66.91 - Otitis media, unspecified, right ear Instructions Patient Instructions: Middle Ear Infection, Ear Infections (Alternative Therapy), Amoxicillin Discharge ED Provider: Viridiana Ross [facility] [place] HPI General Stated complaint: sore throat, ear pain Mode of Arrival: Ambulatory Source
[2023-01-16 17:03] VITALS: BP 113/70; PULSE 64; RESP 20; TEMP 36.8; O2SAT 99
[2023-01-16 17:03] LABS: UTC Strep Screen (Rapid) Negative (Negative)
== END 2023-01-16 17:05 | disposition home or self-care (01) ==
PROVIDERS: Emergency Provider Nurse Practitioner; PCP Family Medicine
DX: H66.91 Otitis media, unspecified, right ear (principal); F17.210 Nicotine dependence, cigarettes, uncomplicated; J44.9 Chronic obstructive pulmonary disease, unspecified; I10 Essential (primary) hypertension; E78.5 Hyperlipidemia, unspecified
CPT/HCPCS: 87880; 99212; 99214; G0463

== ENCOUNTER 2023-02-11 18:51 | Emergency (ER) | payer MEDICAID, SELFPAY ==
[2023-02-11 18:52] VITALS: BP 115/79; PULSE 90; RESP 18; TEMP 36.8; O2SAT 97; BMI 24.2
--- NOTE | 2023-02-11 19:33 | EXP.UTC ---
Discharge Plan Disposition Patient Disposition: Home, Self-Care Condition: Good Prescriptions Prescriptions: New doxycycline hyclate 100 mg capsule 100 mg PO BID Qty: 20 0RF No Action meloxicam 15 mg tablet 15 mg PO DAILY ropinirole 1 mg tablet 1 mg PO HS albuterol sulfate 90 mcg/actuation HFA aerosol inhaler 2 puff inhalation Q6H PRN (Reason: shortness of breath or wheezing) Qty: 8.5 3RF fluticasone propionate [Flonase Allergy Relief] 50 mcg/actuation spray,suspension 1 spray intranasal DAILY Qty: 16 3RF Rx Instructions: administer into each nostril estradiol 2 mg tablet 2 mg PO DAILY 90 Days Qty: 90 1RF pravastatin 80 mg tablet 80 mg PO HS 90 Days Qty: 90 1RF trazodone 100 mg tablet See Rx Instructions .ROUTE .COMPLEX Qty: 60 3RF Dose Instruction: TAKE 2 TABLETS BY MOUTH EVERY DAY AT BEDTIME Rx Instructions: TAKE 2 TABLETS BY MOUTH EVERY DAY AT BEDTIME methocarbamol 500 mg tablet See Rx Instructions .ROUTE .COMPLEX Qty: 120 0RF Dose Instruction: TAKE 1 TABLET BY MOUTH FOUR TIMES DAILY NEEDED FOR MUSCLE PAIN Rx Instructions: TAKE 1 TABLET BY MOUTH FOUR TIMES DAILY NEEDED FOR MUSCLE PAIN pregabalin 150 mg capsule 150 mg PO TID Qty: 90 2RF bupropion HCl 150 mg tablet extended release 24 hr See Rx Instructions .ROUTE .COMPLEX Qty: 30 2RF Dose Instruction: TAKE 1 TABLET BY MOUTH DAILY FOR DEPRESSION Rx Instructions: TAKE 1 TABLET BY MOUTH DAILY FOR DEPRESSION buspirone 10 mg tablet 10 mg PO TID losartan 100 MG tablet 100 mg PO DAILY metoprolol tartrate 50 MG tablet 50 mg PO DAILY ergocalciferol (vitamin D2) 50,000 UNIT capsule 50,000 units PO WEEKLY Referrals Follow up/Referrals: Valente Negron MD [Primary Care Provider] - See instructions Activity Restrictions/Add. Instructions Additional Instructions/Restrictions: Warm Compress to area 3-4 times daily Do not try to bust or squeeze the area allow it to bust on its own Follow up with OBGYN or Family Doctor if no improvement or any worsening of symptoms Clinical Impressions Clinical Impression: Vagina boil Stand Alone Forms Stand Alone Forms: Work/School Release Instructions Patient Instructions: Doxycycline, DI for Boils Discharge ED Provider: Viridiana Ross [facility] HPI General Stated complaint: has a place on vagina with pain, fever Mode of Arrival: Ambulatory Source of Information: Patient Limitations: No Limitations Time Seen by Provider: 02/11/23 19:10 Description of Symptoms (Recalled from Triage Doc. by RN): patient reports a knot on vagina that came up 3 days ago. HEENT Symptoms (Recalled from RN notes): No Resp Symptoms (Recalled from RN notes): No Skin Symptoms (Recalled from RN notes): No MS Symptoms (Recalled from RN notes): No Functional Status (Recalled from RN notes): wnl History of Present Illness Provider Complaint: Patient states that she has a boil like area on the right side of her vagina lip that came up about 3 days ago and it is sore and feels like it is getting bigger States that today it was sore and hurt when she would walk so she came in to get it looked at Related Data Home Medications Medication Instructions Recorded Confirmed ergocalciferol (vitamin D2) 1,250 50,000 units PO WEEKLY Supplement 10/25/20 02/03/23 mcg (50,000 unit) capsule losartan 100 mg tablet 100 mg PO DAILY blood pressure 10/25/20 02/03/23 metoprolol tartrate 50 mg tablet 50 mg PO DAILY BLOOD PRESSURE 10/25/20 02/03/23 meloxicam 15 mg tablet 15 mg PO DAILY . 03/07/22 02/03/23 ropinirole 1 mg tablet 1 mg PO HS . 03/07/22 02/03/23 buspirone 10 mg tablet 10 mg PO TID Depression 09/30/22 02/03/23 Previous Rx's Medication Instructions Recorded albuterol sulfate 90 mcg/actuation 2 puff inhalation Q6H PRN 08/06/22 aerosol inhaler shortness of breath or wheezing #8.5 grams fluticasone propionate
[2023-02-11 20:12] VITALS: BP 115/79; PULSE 90; RESP 18; TEMP 36.8; O2SAT 97
== END 2023-02-11 20:13 | disposition home or self-care (01) ==
PROVIDERS: Emergency Provider Nurse Practitioner; PCP Family Medicine
DX: N76.89 Other specified inflammation of vagina and vulva (principal); R50.9 Fever, unspecified; F17.210 Nicotine dependence, cigarettes, uncomplicated; J44.9 Chronic obstructive pulmonary disease, unspecified; I10 Essential (primary) hypertension; E78.5 Hyperlipidemia, unspecified
CPT/HCPCS: 99212; 99214; G0463

== ENCOUNTER → 2023-03-02 16:36 | Outpatient (CLI) | payer MEDICAID, SELFPAY ==
[2023-03-02 17:23] LABS: Basophils # 0.1 K/mm3 (0-0.2); Basophils % 0.7 % (0.1-2.0); Eosinophils # 0.3 K/mm3 (0.0-0.4); Eosinophils % 3.3 % (0.1-12.0); Hematocrit 43.4 % (37.0-47.0); Hemoglobin 13.7 g/dL (12.2-16.2); Lymphocytes # 2.4 K/mm3 (0.7-4.5); Lymphocytes % 26.3 % (10-50); Mean Corpuscular HGB Conc 31.5 g/dL (31.8-35.4); Mean Corpuscular Hemoglobin 29.8 pg (27.0-31.2); Mean Corpuscular Volume 94.4 fl (81-99); Monocytes # 0.5 K/mm3 (0.1-1.0); Neutrophils # 5.8 K/mm3 (1.8-7.8); Neutrophils % 64.7 % (37.0-80.0); Platelet Count 374 K/mm3 (142-424); Red Cell Distribution Width 12.9 % (11.5-17.5)
[2023-03-02 17:45] LABS: Barbiturates Screen,Urine Negative ng/ml (<200)
[2023-03-02 17:46] LABS: Benzodiazepines Screen,Urine Positive ng/ml (<200)
[2023-03-02 17:47] LABS: Amphetamine/Metha Screen,Urine Negative ng/ml (<1000); Methadone Screen,Urine Negative ng/ml (<300)
[2023-03-02 17:48] LABS: Cannabinoid Screen,Urine Positive ng/ml (<50); Cocaine Screen,Urine Negative ng/ml (<300)
[2023-03-02 17:49] LABS: Opiate Screen,Urine Negative ng/ml (<300)
[2023-03-02 17:50] LABS: Phencyclidine Screen,Urine Negative ng/ml (<25)
[2023-03-02 17:55] LABS: Erythrocyte Sedimentation Rate 14 mm/hr (0-20)
[2023-03-02 18:11] LABS: Alanine Aminotransferase 21 U/L (12-78); Albumin Level 4.2 g/dl (3.5-5.0); Albumin/Globulin Ratio 1.6 (1.1-1.8); Alkaline Phosphatase 89 U/L (38-126); Anion Gap 12.1 mEq/L (5-15); Aspartate Amino Transferase 26 U/L (14-36); Bilirubin,Total 0.3 mg/dl (0.2-1.3); Blood Urea Nitrogen 12 mg/dl (7-17); Calcium 9.3 mg/dl (8.4-10.2); Carbon Dioxide 28 mmol/L (22.0-30.0); Chloride 103 mmol/L (98-107); Estimated Glomerular Filt Rate 108 ml/min (>60); GFR (African American) 131 ML/MIN (>60); Globulin 2.7 g/dL (1.3-3.2); Glucose 111 mg/dl (74-100); Potassium 4.1 mmoL/L (3.5-5.1); Sodium 139 mmol/L (136-145); Total Protein,Serum 6.9 g/dl (6.3-8.2)
[2023-03-02 19:16] LABS: Vitamin B12 387 pg/mL (239-931)
[2023-03-02 19:40] LABS: Iron 103 ug/dL (37-170)
[2023-03-02 20:17] LABS: Ferritin 17.6 ng/ml (6.24-137)
[2023-03-04 12:49] LABS: C-Reactive Protein 6.1 mg/L (0-4)
[2023-03-04 13:45] LABS: Rapid Plasma Reagin Ab Titer Non Reactive titer (NonRea<1:1)
[2023-03-08 10:40] LABS: Antinuclear Antibodies (ANA) Negative
== END ==
PROVIDERS: PCP Family Medicine; Visit Provider Nurse Practitioner Family
DX: E83.10 Disorder of iron metabolism, unspecified (principal); G25.81 Restless legs syndrome; G47.9 Sleep disorder, unspecified; M54.2 Cervicalgia; R06.83 Snoring; R20.0 Anesthesia of skin; R20.2 Paresthesia of skin; R51.9 Headache, unspecified; R56.9 Unspecified convulsions; F11.11 Opioid abuse, in remission; F12.90 Cannabis use, unspecified, uncomplicated
CPT/HCPCS: 36415; 80053; 80305; 82607; 82728; 82746; 83540; 84443; 85025; 85651; 86038; 86140; 86225; 86235; 86593

== ENCOUNTER → 2023-03-27 15:30 | Outpatient (CLI) | payer MEDICAID, SELFPAY ==
--- NOTE | 2023-03-27 15:40 | MR_ITS ---
PROCEDURE INFORMATION: Exam: MR Head Without and With Contrast Exam date and time: 03/27/2023 3:43 PM Age: 47 years old Clinical indication: Patient HX: Consent headaches , seizures x 1-2 month; Additional info: Seizure TECHNIQUE: Imaging protocol: Magnetic resonance imaging of the head without and with contrast. Contrast material: PROHANCE; Contrast volume: 14 ml; Contrast route: IV; COMPARISON: HDWO CT HEAD W/O CONTRAST 07/27/2016 5:28 PM FINDINGS: Brain: No acute infarct. No hemorrhage. No significant white matter disease. No edema. No abnormal enhancement. There is 3 mm of cerebellar tonsillar ectopia present. Cerebral ventricles: Normal. No ventriculomegaly. Bones/joints: Unremarkable. Paranasal sinuses: Normal as visualized. No acute sinusitis. Mastoid air cells: Normal as visualized. No mastoid effusion. Orbital cavities: Unremarkable. Soft tissues: Unremarkable. IMPRESSION: 1. No acute intracranial abnormality. 2. There is 3 mm of cerebellar tonsillar ectopia present which is borderline for a Chiari 1 malformation.
== END ==
PROVIDERS: PCP Family Medicine; Visit Provider Nurse Practitioner Family
DX: R56.9 Unspecified convulsions (principal); R51.9 Headache, unspecified; M54.2 Cervicalgia; R20.0 Anesthesia of skin; R20.2 Paresthesia of skin; E83.10 Disorder of iron metabolism, unspecified; F11.11 Opioid abuse, in remission; F12.90 Cannabis use, unspecified, uncomplicated; G25.81 Restless legs syndrome; G47.9 Sleep disorder, unspecified; M25.50 Pain in unspecified joint; R06.83 Snoring; R68.89 Other general symptoms and signs
CPT/HCPCS: 70553; 95806; A9576

== ENCOUNTER → 2023-04-17 09:52 | Outpatient (CLI) | payer MEDICAID, SELFPAY | PROVIDERS: PCP Family Medicine; Visit Provider Nurse Practitioner Family | DX: R56.9 Unspecified convulsions (principal); R51.9 Headache, unspecified; R20.0 Anesthesia of skin; R20.2 Paresthesia of skin; R68.89 Other general symptoms and signs; E83.10 Disorder of iron metabolism, unspecified; F11.11 Opioid abuse, in remission; F12.90 Cannabis use, unspecified, uncomplicated | CPT/HCPCS: 95816 ==

== ENCOUNTER → 2023-04-22 17:02 | Outpatient (CLI) | payer MEDICAID, SELFPAY ==
--- NOTE | 2023-04-22 17:07 | MM_ITS ---
PROCEDURE INFORMATION: Exam: Bilateral Screening 3D Mammography Exam date and time: 04/22/2023 4:53 PM Age: 47 years old Clinical indication: Screening examination TECHNIQUE: Imaging protocol: Bilateral Screening tomosynthesis and 2D mammography including computer-aided detection (CAD) when performed. COMPARISON: SCREEN MAMMO W CAD BILAT 01/20/2022 11:42 AM FINDINGS: MAMMOGRAPHY: Breast composition: The breasts are extremely dense, which lowers the sensitivity of mammography. Mass: None. Architectural distortion: None. Calcifications: No suspicious calcifications. Asymmetric density: None. Skin thickening: None. Axillary adenopathy: None. IMPRESSION: No mammographic evidence of malignancy. Annual screening is recommended unless otherwise clinically indicated. ASSESSMENT: BI-RADS Category 1: Negative
== END ==
PROVIDERS: PCP Family Medicine; Visit Provider Family Medicine
DX: Z12.31 Encounter for screening mammogram for malignant neoplasm of breast (principal)
CPT/HCPCS: 77063; 77067

== ENCOUNTER → 2023-04-27 14:21 | Outpatient (CLI) | payer MEDICAID, SELFPAY ==
--- NOTE | 2023-04-27 14:24 | XR_ITS ---
FINAL REPORT CLINICAL HISTORY: neck pain FINDINGS: CERVICAL SPINE 8 views of the cervical spine were obtained. There is no prior exam available for comparison. There is no acute fracture or dislocation. There is reversal of lordosis. Moderate disc space narrowing is seen at C6-7. There are anterior osteophytes in the lower cervical spine. There is no instability with flexion or extension. Precervical soft tissues are unremarkable. IMPRESSION: No acute bony abnormality. No instability with flexion or extension. Reviewed, Interpreted and Dictated by Byron Luna MD Transcribed by Michelle Avalos Authenticated and [facility]
== END ==
PROVIDERS: PCP Family Medicine; Visit Provider Nurse Practitioner Family
DX: M54.2 Cervicalgia (principal); M25.50 Pain in unspecified joint; R20.0 Anesthesia of skin; R20.2 Paresthesia of skin; R51.9 Headache, unspecified; R56.9 Unspecified convulsions; R68.89 Other general symptoms and signs; E83.10 Disorder of iron metabolism, unspecified; F11.11 Opioid abuse, in remission; F12.90 Cannabis use, unspecified, uncomplicated; G25.81 Restless legs syndrome; G47.9 Sleep disorder, unspecified; R06.83 Snoring
CPT/HCPCS: 72052

== ENCOUNTER 2023-05-04 11:08 | Outpatient (RCR) | payer MEDICAID, SELFPAY ==
--- NOTE | 2023-05-04 12:26 | HMH.PTOPEV ---
PT Outpatient Evaluation Rehab PT Outpatient Evaluation Start: 05/04/23 11:16 Freq: Status: Active Protocol: Document 05/04/23 11:16 PDESEROUX (Rec: 05/04/23 12:26 [email or web address] [id number]) E-signed By Antonio Carrasquillo, PT Outpatient Therapy Subjective History Subjective History Pt. is a 47 year old female who presents to [facility] in [place] for the initial evaluation this date(05/04/23) w/ c/o chronic and constant cervical and BUE P!, burning, and weakness of insidious onset years ago. Pt. reports having a constant headache everyday that worsens towards the end of the day. Pt . reports bright lights and loud noises worsen headaches. Pt. c/o increased heaviness in BUE shldrs. towards the end of the day. Pt. reports possible cogenital defect w/ recent brain MRI. Pt. reports possible cervical spine MRI if no symptom relief w/ Physical Therapy. Pt. reports RTMD 06/06 to assess brain MRI. Recent EMG study including positive findings in the LUE 1st digit compared to the RUE per pt. report. Pt. also c/o dropping objects secondary to masseur/masseuse weakness. Current medication list includes Estradiol, Meloxicam, Wellburtin, Buspar, Pravastatin, Losartan, Metoprolol, Xanax, and Lyrica. PMH includes Fibromyalgia, Spinal Stenosis, Osteoarthritis, Cholecystectomy, Complete Hysterectomy. New diagnosis of cancer in past 12 No months? 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
== END 2023-06-11 10:20 | disposition home or self-care (01) ==
LOC: PT 11:08
PROVIDERS: PCP Family Medicine; Visit Provider Nurse Practitioner Family
DX: M54.2 Cervicalgia (principal); R20.0 Anesthesia of skin; R20.2 Paresthesia of skin
CPT/HCPCS: 97163